=== PATIENT | male | born 1975 | race Caucasian/White ===

== ENCOUNTER → 2019-01-31 | Emergency (ER) | payer SELFPAY ==
[~2019-01-31] VITALS: Ht 177.8 cm; Wt 90.0 kg
--- NOTE | 2019-01-31 01:06 | NUR ---
states about 30 min ago took cildenophil, never had a reaction before, now having feelings of chest pressure that comes in waves lasting 45 seconds and frequently.
[2019-01-31 01:13] LABS: BASOPHILS % (AUTO) 0.7 % (0-1); EOSINOPHILS # (AUTO) 0.2 X10'3 (0-0.9); EOSINOPHILS % (AUTO) 2.7 % (0-6); HEMATOCRIT 43.6 % (42.0-52.0); HEMOGLOBIN 15.3 g/dl (14.0-17.9); LYMPHOCYTES # (AUTO) 3.4 X10'3 (1.1-4.8); LYMPHOCYTES % (AUTO) 50.6 % (21-51); MEAN CORPUSCULAR HEMOGLOBIN 32.7 PG (27.0-31.0); MEAN CORPUSCULAR HGB CONC 35.1 g/dL (33.0-36.5); MEAN CORPUSCULAR VOLUME 93.2 FL (78-98); MEAN PLATELET VOLUME 8.1 FL (7.4-10.4); MONOCYTES # (AUTO) 0.7 X10'3 (0-0.9); MONOCYTES % (AUTO) 10.4 % (2-12); NEUTROPHILS # (AUTO) 2.4 X10'3 (1.8-7.7); NEUTROPHILS % (AUTO) 35.6 % (42-75); PLATELET COUNT 282 X10'3 (140-440); RED BLOOD COUNT 4.68 X10'6 (4.70-6.10); RED CELL DISTRIBUTION WIDTH 12.5 % (11.5-14.5); WHITE BLOOD COUNT 6.6 X10'3 (4.5-11.0)
[2019-01-31 01:26] LABS: PARTIAL THROMBOPLASTIN TIME 27 SECONDS (22-32)
[2019-01-31 01:29] LABS: ALANINE AMINOTRANSFERASE 65 U/L (12-78); ALBUMIN 4.1 G/DL (3.4-5.0); ALBUMIN/GLOBULIN RATIO 1.1 (1.1-1.5); ALKALINE PHOSPHATASE 85 IU/L (46-116); ANION GAP 9 (8-16); ASPARTATE AMINO TRANSFERASE 28 U/L (10-37); BILIRUBIN,TOTAL 0.4 MG/DL (0.1-1.0); BLOOD UREA NITROGEN 13 MG/DL (7-18); BUN/CREATININE RATIO 10.8 (5.4-32.0); CHLORIDE 104 MMOL/L (99-107); GLUCOSE 121 MG/DL (70-104); SODIUM 140 MMOL/L (135-145); TOTAL CARBON DIOXIDE 26.7 MMOL/L (24-32); TOTAL PROTEIN 7.8 G/DL (6.4-8.2); eGFR 66 ML/MIN
[2019-01-31 01:35] LABS: POTASSIUM 3.4 MMOL/L (3.5-5.1)
[2019-01-31 01:47] VITALS: BP 174/96
== END | disposition home or self-care (01) ==
LOC: ER 00:42
DX: R07.89 Other chest pain (principal); F41.8 Other specified anxiety disorders; F10.20 Alcohol dependence, uncomplicated; Z88.3 Allergy status to other anti-infective agents
CPT/HCPCS: 36415; 71045; 80053; 84484; 85025; 85610; 85730; 93005; 99284

== ENCOUNTER 2024-11-15 10:11 | Emergency (ER) | payer BC ==
[~2024-11-15] VITALS: Ht 175.3 cm; Wt 71.0 kg
[2024-11-15 10:38] VITALS: BP 139/99; PULSE 84; RESP 16; TEMP 99.4; O2SAT 97
--- NOTE | 2024-11-15 10:45 | Physician Documentation ---
History of Present Illness Chief Complaint: Vomiting Stated Complaint: VOMITING HPI 49-year-old male presents with right-sided flank pain and swelling in the right groin. He has also had nausea and vomiting. Stated history of kidney stone with the most recent CT scan February of 2024. Medication Reconciliation Allergies: Coded Allergies: iodine (Verified Allergy, Unknown, 01/31/19) Past Medical History Past Medical History: No Pertinent History Past Surgical History: no surgical history Alcohol Use: Occasionally Lives with: Spouse Lives In: Home Review of Systems ROS As stated above in the HPI, otherwise all systems are reviewed and negative. Physical Exam Vital Signs: Temperature: 99.4, Source: Temporal, Heart Rate: 84, Respiratory Rate: 16, BP: 139/99, Pulse Oximetry: 97, Weight: 71.000 Oxygen Flow Rate: 0 Physical Exam General: Alert, no apparent distress. Neck: Full range of motion. Respiratory: Lungs clear, no respiratory distress. Chest: No accessory muscle use. Cardiovascular: Regular rate and rhythm, no murmurs. Gastrointestinal: Soft, nontender, nondistended. Bowels sounds present. Extremities: Normal range of motion, no deformity. Neurologic: Oriented x4. Psychiatric: Normal mood and affect. Skin: Normal color, warm and dry. No edema, no ecchymosis. 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 Kidneys look normal without hydronephrosis. No stone visualized. Results/Orders Results/Orders Orders - DEISI MAGDALENO NP Urinalysis, Cult If Indicated (11/15/24 10:43) Cbc/Diff (11/15/24 10:43) BMP (11/15/24 10:43) Lipase (11/15/24 10:43) CMP (11/15/24 10:43) Vital Signs 11/15/24 10:38 Temp 99.4 Pulse 84 Resp 16 B/P (MAP) 139/99 Pulse Ox 97 O2 Flow Rate 0 EKG/XRAY/CT/US/VASC/MRI Ultrasound : [facility] [address], [place] - [address] ULTRASOUND Patient: RONALDO BRIAN Medical Record: [id number] [facility] : 1975, Age: 49 Sex: Male Location: ER Patient Status: [facility] ER Service Date/Time: 11/15/24 Ordering Physician: DEISI MAGDALENO NP Exam: US TESTIC/W/DUPLEX ULTRASOUND OF SCROTUM AND CONTENTS. INDICATION: right inguinal hernia, right flank pain COMPARISON: None TECHNIQUE: Multiple real-time grayscale sonographic and color and duplex Doppler images of the scrotum and its contents were obtained. FINDINGS: The right testicle measures 3.0 x 2.4 x 1.7 cm. The left testicle measures 3.1 x 3.7 x 1.8 cm. Both testicles demonstrate homogeneous echotexture without evidence of focal lesions. Right and left epididymis are unremarkable. Subsequent color and duplex Doppler interrogation of the testes demonstrated symmetric normal vascular flow to both testicles. No focal areas of hyperemia were seen. Right inguinal hernia is present. Small right hydrocele. IMPRESSION: 1. No evidence of torsion, epididymitis, and/or orchitis. 2. Right inguinal hernia is present. 3. Small right hydrocele. Electronically Signed by:ROSS KRAMER MD Date & Time: 11/15/241412 Dictated by: ROSS KRAMER MD Dictation date and time: 11/15/24 141 Primary Care Provider: NO PRIMARY CARE PROVIDER cc: DEISI MAGDALENO TELECOMMUNICATOR SUPERVISOR ~ [address] [address] ULTRASOUND Patient: RONALDO BRIAN Medical Record: [id number] [facility] : 1975, Age: 49 Sex: Male Location: ER Patient Status: [facility] ER Service Date/Time: 11/15/24 Ordering Physician: DEISI MAGDALENO NP Exam: ULTRASOUND KIDNEY NON VASC INDICATION: right inguinal hernia, right flank pain TECHNIQUE: Multiple real-time sonographic images of the kidneys and bladder were obtained. COMPARISON: None FINDINGS: The right kidney measures 12.4 cm in length, which is normal in size. There is normal echogenicity of the right kidney. No hydronephrosis. The left kidney measures 11.0 cm in length, which is normal in size. There is normal echogenicity of the left kidney. No hydronephrosis. There is mild prominence of the renal pelvis. No large intraluminal masses are seen in the bladder. The bladder volume is approximately 68 cc. The right and left ureteral jets are visualized during this study. IMPRESSION: Mild prominence of the right renal pelvis without marcia hydronephrosis. Electronically Signed by:JOSH CLOUD MD Date & Time: 11/15/241407 Dictated by: JOSH CLOUD MD Dictation date and time: 11/15/241407 Primary Care Provider: NO PRIMARY CARE PROVIDER cc: DEISI MAGDALENO NP ~ Medical Decision Making Additional Comments History of kidney stones present as stage you to flank pain and swelling in the right groin. He was found to have a right inguinal hernia. Ultrasound did not show hydronephrosis or evidence of stone. He is advised to follow up with his primary care and request a referral to General surgery for repair of the right inguinal hernia. He was offered pain management for his kidney stone, but declined. No fevers, chills. Urinalysis without signs of infection. Departure Time of Disposition: 13:58 Disposition: 01 HOME / SELF CARE / HOMELESS Impression: Primary Impression: Flank pain Additional Impression: Inguinal hernia of right side without obstruction or gangrene Condition: Stable Discharge Instructions: Flank Pain, Adult, Inguinal Hernia, Adult Additional Instructions: U.S. of your kidneys was normal. No evidence of fluid collection to suggest an obstructing kidney stone. No stone visualized. The ultrasound of your testicles and groin did show a right inguinal hernia. This will need to be surgically repaired. Please see your primary care provider soon for a referral to General surgery. Please return if worse at any time. Referrals: NO PRIMARY CARE PROVIDER (PCP) Prescriptions Ondansetron 8mg ODT (Ondansetron Odt) 8 Mg Tab.rapdis 1 TAB PO Q8H for nausea/vomiting for 5 Days, #15 TAB 0 Refills Prov: DEISI MAGDALENO NP 11/15/24 Education Educated: Patient Educated regarding: diagnosis, treatment, prognosis Signature Scribe Signature: x Attestation: The note accurately reflects work and decisions made by me.Deisi Mayen NP 11/15/24 10:45 DEISI MAGDALENO NP Nov 15, 2024 10:45
[2024-11-15 11:32] LABS: MEAN PLATELET VOLUME 8.5 FL (7.4-10.4); RED CELL DISTRIBUTION WIDTH 12.7 % (11.5-14.5)
[2024-11-15 11:47] LABS: CREATININE 1.09 MG/DL (0.60-1.10); TOTAL CARBON DIOXIDE 28.8 MMOL/L (24-32); eCRCL 81 ML/MIN; eGFR 72 ML/MIN
[2024-11-15] MEDS: ondansetron/PF 4mg/2ml inj IV ONE (12:46)
[2024-11-15] MEDS: normal saline 1000ml 1,000 ML IV ONE (12:46)
[2024-11-15 13:31] LABS: LEUKOCYTE ESTERASE ,URINE NEGATIVE (Neg); NITRITES, URINE NEGATIVE (Neg); OCCULT BLOOD,URINE SMALL (Neg)
[2024-11-15 13:41] LABS: UA COLLECTION TYPE CLN CATCH MIDSTREAM
[2024-11-15 14:04] LABS: SQUAMOUS EPITHELIAL CELL,UR FEW /LPF (FEW)
--- NOTE | 2024-11-15 14:11 | RADIOLOGY REPORT ---
INDICATION: right inguinal hernia, right flank pain TECHNIQUE: Multiple real-time sonographic images of the kidneys and bladder were obtained. COMPARISON: None FINDINGS: The right kidney measures 12.4 cm in length, which is normal in size. There is normal echog enicity of the right kidney. No hydronephrosis. The left kidney measures 11.0 cm in length, which is normal in size. There is normal echogenicity of the left kidney. No hydronephrosis. There is mild prominence of the renal pelvis. No large intraluminal masses are seen in the bladder. The bladder volume is approximately 68 cc. The right and left ureteral jets are visualized during this study. IMPRESSION: Mild prominence of the right renal pelvis without marcia hydronephrosis.
--- NOTE | 2024-11-15 14:15 | RADIOLOGY REPORT ---
ULTRASOUND OF SCROTUM AND CONTENTS. INDICATION: right inguinal hernia, right flank pain COMPARISON: None TECHNIQUE: Multiple real-time grayscale sonographic and color and duplex Doppler images of the scrotu m and its contents were obtained. FINDINGS: The right testicle measures 3.0 x 2.4 x 1.7 cm. The left testicle measures 3.1 x 3.7 x 1.8 cm. Both testicles demonstrate homogeneous echotexture without evidence of focal lesions. Right and left epididymis are unremarkable. Subsequent color and duplex Doppler interrogation of the testes demonstrated symmetric normal vascula r flow to both testicles. No focal areas of hyperemia were seen. Right inguinal hernia is present. Small right hydrocele. IMPRESSION: 1. No evidence of torsion, epididymitis, and/or orchitis. 2. Right inguinal hernia is present. 3. Small right hydrocele.
[2024-11-15] MEDS ORDERED: ONDA-245 PO (14:36)
== END 2024-11-15 14:42 | disposition home or self-care (01) ==
LOC: ER 10:12
DX: K40.90 Unilateral inguinal hernia, without obstruction or gangrene, not specified as recurrent (principal); Z87.442 Personal history of urinary calculi; Z88.8 Allergy status to other drugs, medicaments and biological substances; Z72.89 Other problems related to lifestyle
CPT/HCPCS: 36415; 76770; 76870; 80053; 81001; 83690; 85025; 93976; 99284